=== PATIENT | female | born 1990 | race Caucasian/White ===

== ENCOUNTER 2017-10-06 16:36 | Emergency (ER) | payer OTHER ==
[2017-10-06] MEDS: KETOROLAC 30 MG INJ IV (18:06)
[2017-10-06] MEDS: METOCLOPRAMIDE 10 MG INJ IV (18:06)
[2017-10-06] MEDS: DIPHENHYDRAMINE 50 MG INJ IV (18:06)
[2017-10-06] MEDS: SOD CHLORIDE 0.9% 1,000 ML IV (18:18)
== END 2017-10-06 20:00 | disposition home or self-care (01) ==
LOC: FTE 16:36
DX: R51 Headache (principal)
CPT/HCPCS: 96374; 96375; 99284-25

== ENCOUNTER 2017-11-14 21:40 | Emergency (ER) | payer SELFPAY, OTHER | END 2017-11-15 00:07 | disposition left against medical advice (07) | LOC: E/R 21:40 | DX: Z53.21 Procedure and treatment not carried out due to patient leaving prior to being seen by health care provider (principal) ==

== ENCOUNTER 2017-12-01 09:53 | Emergency (ER) | payer SELFPAY ==
[2017-12-01] MEDS: ONDANSETRON 4 MG INJ IV (11:35)
[2017-12-01] MEDS: KETOROLAC 30 MG INJ IV (11:36)
[2017-12-01] MEDS: SOD CHLORIDE 0.9% 1,000 ML IV (11:36)
[2017-12-01 11:51] LABS: ADD UMIC YES; UR ASCORBIC ACID NEGATIVE (NEGATIVE); UR BILIRUBIN (Dip) NEGATIVE (NEGATIVE); UR BLOOD (Dip) NEGATIVE (NEGATIVE); UR CLARITY SLIGHTLY CLOUDY (CLEAR); UR COLOR YELLOW (YELLOW); UR GLUCOSE (Dip) NEGATIVE (NEGATIVE); UR KETONES (Dip) TRACE mg/dL (NEGATIVE); UR LEUKOCYTE ESTERASE (Dip) NEGATIVE Leu/ul (NEGATIVE); UR MUCUS FEW /HPF (NONE SEEN); UR NITRITE (Dip) NEGATIVE (NEGATIVE); UR RBC 1 /HPF (0-5); UR SQUAMOUS EPITHELIAL CELL MODERATE /HPF (FEW); UR TOTAL PROTEIN (Dip) 1+ mg/dl (NEGATIVE); UR UROBILINOGEN (Dip) NEGATIVE (NEGATIVE); UR WBC 2 /HPF (0-5)
[2017-12-01 12:08] LABS: ADD MAN DIFF? NO
[2017-12-01 12:24] LABS: BASOPHILS % 0.3 % (0.0-2.0); EOSINOPHILS # 0.1 10^3/ul (0.0-0.5); EOSINOPHILS % 1.2 % (0.0-7.0); HEMATOCRIT 38.6 % (37.0-47.0); LYMPHOCYTES # 1.9 10^3/ul (0.8-2.9); MEAN CORPUSCULAR HEMOGLOBIN 32.3 pg (29.0-33.0); MEAN CORPUSCULAR HGB CONC 33.7 g/dl (32.0-37.0); MEAN PLATELET VOLUME 11.2 fl (7.4-10.4); MONOCYTE # 0.4 10^3/ul (0.3-0.9); MONOCYTES % 6.8 % (0.0-11.0); NEUTROPHIL # 3.5 10^3/ul (1.6-7.5); NEUTROPHILS % 59.5 % (39.0-77.0); PLATELET COUNT 214 10^3/UL (140-415); RED BLOOD COUNT 4.02 10^6/ul (4.20-5.40); RED CELL DISTRIBUTION WIDTH 11.7 % (11.5-14.5)
[2017-12-01 12:24] LABS: WHITE BLOOD COUNT 5.8 10^3/ul (4.8-10.8)
[2017-12-01 12:30] LABS: ALANINE AMINOTRANSFERASE 25 IU/L (13-69); ALBUMIN 4.9 g/dl (3.3-4.9); ALBUMIN/GLOBULIN RATIO 1.48; ALKALINE PHOSPHATASE 40 IU/L (42-121); ANION GAP 20 (8-16); ASPARTATE AMINO TRANSFERASE 16 IU/L (15-46); BLOOD UREA NITROGEN 6 mg/dl (7-20); CALCIUM 9.4 mg/dl (8.4-10.2); CARBON DIOXIDE 26 mmol/L (21-31); CHLORIDE 105 mmol/L (97-110); CREATININE 0.58 mg/dl (0.44-1.00); GLUCOSE 109 mg/dl (70-220); LIPASE 63 U/L (23-300); POTASSIUM 3.6 mmol/L (3.5-5.1); SODIUM 147 mmol/L (135-144); TOTAL PROTEIN 8.2 g/dl (6.1-8.1)
== END 2017-12-01 13:10 | disposition home or self-care (01) ==
LOC: FTE 09:53
DX: R10.32 Left lower quadrant pain (principal)
CPT/HCPCS: 36415; 74176; 80053; 81001; 83690; 85025; 96374; 96375; 99285-25

== ENCOUNTER 2018-02-13 16:26 | Emergency (ER) | payer OTHER | END 2018-02-13 18:00 | disposition home or self-care (01) | LOC: E/R 18:00 | DX: S69.92XA Unspecified injury of left wrist, hand and finger(s), initial encounter (principal); W01.0XXA Fall on same level from slipping, tripping and stumbling without subsequent striking against object, initial encounter; Y92.9 Unspecified place or not applicable | CPT/HCPCS: 29125; 73110-LT; 73130-LT; 99283-25 ==

== ENCOUNTER 2018-02-25 11:52 | Emergency (ER) | payer OTHER ==
[2018-02-25] MEDS: LORAZEPAM 0.5 MG TAB PO (12:47)
== END 2018-02-25 13:30 | disposition home or self-care (01) ==
LOC: FTE 11:52
DX: R07.9 Chest pain, unspecified (principal)
CPT/HCPCS: 93005; 99283-25